=== PATIENT | female | born 1955 | race African-American/Black ===

== ENCOUNTER 2017-08-10 14:38 | Emergency (ER) | payer OTHER | END 2017-08-10 15:30 | disposition home or self-care (01) | LOC: MADERS 14:38 | DX: I82.402 Acute embolism and thrombosis of unspecified deep veins of left lower extremity (principal); I10 Essential (primary) hypertension; J44.9 Chronic obstructive pulmonary disease, unspecified; F32.9 Major depressive disorder, single episode, unspecified; Z79.899 Other long term (current) drug therapy | CPT/HCPCS: 99283 ==

== ENCOUNTER 2017-08-11 10:09 | Emergency (ER) | payer OTHER ==
[2017-08-11] MEDS ORDERED: Ibuprofen 600 MG TAB ONE (11:08)
--- NOTE | 2017-08-11 11:09 | RAD ---
3 VIEWS LEFT ANKLE: Date; 08/11/17 HISTORY: Left ankle pain and swelling for 2 weeks. FINDINGS: Ankle mortise is congruent. No fracture or dislocation is seen involving the left ankle. There is a l arge amount of subcutaneous soft tissue swelling about the ankle. No other findings. IMPRESSION: Large amount of subcutaneous soft tissue swelling about the ankle. POS: [facility]
== END 2017-08-11 11:26 | disposition home or self-care (01) ==
LOC: MADERS 10:09
DX: S90.02XA Contusion of left ankle, initial encounter (principal); J44.9 Chronic obstructive pulmonary disease, unspecified; I10 Essential (primary) hypertension; F32.9 Major depressive disorder, single episode, unspecified; Z79.899 Other long term (current) drug therapy; W19.XXXA Unspecified fall, initial encounter

== ENCOUNTER 2017-08-24 14:29 | Emergency (ER) | payer MEDICARE ==
[~2017-08-24 14:29] MED LIST: Sodium Chloride 0.9% 1,000 ML BAG ONE
[2017-08-24] MEDS ORDERED: Ibuprofen 400 MG TAB ONE (16:05)
[2017-08-24] MEDS ORDERED: Albuterol Sulfate 1.25 MG/3 ML NEB ONE ×2 (16:05→16:47)
--- NOTE | 2017-08-24 16:31 | RAD ---
CHEST PA AND LATERAL TWO VIEWS: 08/24/17 HISTORY: 61-year-old female with cough and flu-like symptoms for four days. COMPARISON: 09/28/05. Marked bilateral hyperinflation and chronic lung changes with some linear and parenchymal changes in the right mid lung zone and in both bases, somewhat more prominent than on the prior study. No conflu ent pneumonia or overt edema. IMPRESSION: Fairly extensive bilateral hyperinflation and chronic lung changes with some reticulonodular and line ar parenchymal changes, particularly in the right mid lung zone and both bases. No evidence for confl uent pneumonia. POS: [facility]
[2017-08-24] MEDS ORDERED: Acetaminophen 325 MG TAB ONE ×2 (16:49→16:50)
[2017-08-24 16:50] LABS: ALT (SGPT) Less than 7 U/L (8-55); AST (SGOT) 23 U/L (5-34); Albumin 3.4 g/dL (3.5-5.0); Alkaline Phosphatase 252 U/L (40-150); Anion Gap 14 mmol/L (10-20); BUN (Urea Nitrogen) 8 mg/dL (9.8-20.1); Bilirubin, Total 0.4 mg/dL (0.2-1.2); Calc. Creatinine Clearance 0 mL/min (70-130); Calcium 8.7 mg/dL (7.8-10.44); Carbon Dioxide 17 mmol/L (22-29); Chloride 115 mmol/L (98-107); Estimated GFR-MDRD 85; Globulin 3.6 g/dL (2.4-3.5); Glucose 108 mg/dL (70-105); Potassium 4.8 mmol/L (3.5-5.1); Sodium 141 mmol/L (136-145)
[2017-08-24 17:01] LABS: Eosinophils 1 % (0-10); Hemoglobin 10.1 g/dL (12.0-16.0); Lymphocytes 6 % (21-51); MDiff Complete? YES; Mean Corpuscular HGB CONC 29.6 g/dL (32.0-36.0); Mean Corpuscular Hemoglobin 29.4 pg (27.0-31.0); Mean Corpuscular Volume 99.4 fl (81.0-99.0); Mean Platelet Volume 5.8 fL (7.4-10.4); Monocytes 8 % (0-10); Neutrophil 82 % (42-75); PLT Morphology Comment Appears Adequate; Platelet Count 436 thou/uL (130-400); Polychromasia SLIGHT = 2-3 cells (100X) (0-2/hpf); RBC Distribution Width 16.5 % (11.5-14.5); Reactive Lymphocytes 3 % (0-10); Red Blood Cell (RBC) Count 3.43 mill/uL (4.20-5.40); White Blood Cell (WBC) Count 14.7 thou/uL (4.8-10.8)
[2017-08-24] MEDS ORDERED: cefTRIAXone\\ROCEPHIN 1 GM VIAL ONE (17:42)
== END 2017-08-24 18:25 | disposition home or self-care (01) ==
LOC: MADERS 14:29
DX: J44.1 Chronic obstructive pulmonary disease with (acute) exacerbation (principal); E78.5 Hyperlipidemia, unspecified; F32.9 Major depressive disorder, single episode, unspecified; F17.210 Nicotine dependence, cigarettes, uncomplicated; I10 Essential (primary) hypertension; Z79.899 Other long term (current) drug therapy
CPT/HCPCS: 36415; 71020; 80053; 85025; 87040; 96361; 96372; 96374; J0696; J1040; J7050

== ENCOUNTER 2017-09-06 08:42 | Outpatient (CLI) | payer MEDICARE, MEDICAID ==
[2017-09-06 09:02] LABS: #Basophils 0.2 thou/uL (0.0-0.2); #Eosinphils 0.2 thou/uL (0.0-0.7); #Lymphocytes 2.1 thou/uL (1.20-3.40); #Monocytes 0.9 thou/uL (0.11-0.59); #Neutrophils 5.5 thou/uL (1.40-6.50); %Basophils 2.1 % (0.0-1.0); %Lymphocytes 23.8 % (21.0-51.0); %Monocytes 10.2 % (0.0-10.0); %Neutrophils 61.9 % (42.0-75.0); Hemoglobin 10.6 g/dL (12.0-16.0); Mean Corpuscular HGB CONC 30.4 g/dL (32.0-36.0); Mean Corpuscular Hemoglobin 29.5 pg (27.0-31.0); Mean Platelet Volume 5.3 fL (7.4-10.4); Platelet Count 412 thou/uL (130-400); RBC Distribution Width 17.6 % (11.5-14.5); White Blood Cell (WBC) Count 8.8 thou/uL (4.8-10.8)
[2017-09-06 09:06] LABS: INR-International Normal Ratio 1.1; Prothrombin Time 14.2 SEC (12.0-14.7)
[2017-09-06 09:07] LABS: PTT 36.2 SEC (22.9-36.1)
[2017-09-06 09:56] LABS: Carbon Dioxide 19 mmol/L (22-29); Chloride 114 mmol/L (98-107); Potassium 4.4 mmol/L (3.5-5.1); Sodium 142 mmol/L (136-145)
[2017-09-06 09:57] LABS: Albumin 3.8 g/dL (3.5-5.0); BUN (Urea Nitrogen) 10 mg/dL (9.8-20.1); Bilirubin, Total 0.4 mg/dL (0.2-1.2); Calc. Creatinine Clearance 0 mL/min (70-130); Calcium 8.7 mg/dL (7.8-10.44); Cholesterol 155 mg/dL (< 200 Desired); Estimated GFR-MDRD Greater than 90; Globulin 3.3 g/dL (2.4-3.5); Glucose 113 mg/dL (70-105); Protein, Total 7.1 g/dL (6.0-8.3)
[2017-09-06 09:58] LABS: ALT (SGPT) 15 U/L (8-55); AST (SGOT) 36 U/L (5-34); Alkaline Phosphatase 211 U/L (40-150); HDL Cholesterol 61 mg/dL (>60 Neg Risk); Triglycerides 72 mg/dL (Less than 150); Uric Acid 8.7 mg/dL (2.6-6.0)
[2017-09-06 10:03] LABS: Anion Gap 13 mmol/L (10-20); Cardiac Risk 2.5 (Less than 4.5); LDL Cholesterol, Calculated 80 mg/dL
== END 2017-09-06 08:43 | disposition home or self-care (01) ==
LOC: MADLABBHPM 08:42
PROVIDERS: ATTEND Family Medicine
DX: Z13.21 Encounter for screening for nutritional disorder (principal); Z13.0 Encounter for screening for diseases of the blood and blood-forming organs and certain disorders involving the immune mechanism; Z13.220 Encounter for screening for lipoid disorders; Z13.29 Encounter for screening for other suspected endocrine disorder; I10 Essential (primary) hypertension
CPT/HCPCS: 36415; 80053; 80061; 84443; 84550; 85025; 85610; 85652; 85730; 86141

== ENCOUNTER 2017-09-19 08:51 | Emergency (ER) | payer MEDICARE ==
[2017-09-19 10:16] LABS: Hemoglobin 10.9 g/dL (12.0-16.0); Mean Corpuscular HGB CONC 30.8 g/dL (32.0-36.0); Mean Corpuscular Hemoglobin 28.8 pg (27.0-31.0); Mean Corpuscular Volume 93.6 fl (81.0-99.0); Mean Platelet Volume 6.5 fL (7.4-10.4); Platelet Count 206 thou/uL (130-400); RBC Distribution Width 16.6 % (11.5-14.5); Red Blood Cell (RBC) Count 3.77 mill/uL (4.20-5.40); White Blood Cell (WBC) Count 7.7 thou/uL (4.8-10.8)
[2017-09-19 10:20] LABS: Band 7 % (5-11); Eosinophils 1 % (0-10); Lymphocytes 25 % (21-51); MDiff Complete? YES; Manual Diff?? YES; Monocytes 13 % (0-10); Neutrophil 54 % (42-75)
--- NOTE | 2017-09-19 10:20 | RAD ---
FRONTAL VIEW CHEST: INDICATIONS: Cough. COMPARISON: 08/24/2017 FINDINGS: Redemonstration of pulmonary hyperinflation with evidence of bullous emphysema. Linear areas of pare nchymal scarring are seen bilaterally. Metallic clips remain at the lower right chest. The cardiac silhouette is stable. IMPRESSION: 1. Stable chest. 2. 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 POS: [facility]
[2017-09-19 10:21] LABS: Anisocytosis SLIGHT = 6-15 cells (100X) (0-5/hpf); PLT Morphology Comment Appears Adequate; Poikilocytosis SLIGHT = 6-15 cells (100X) (0-5/hpf)
[2017-09-19 10:49] LABS: ALT (SGPT) 7 U/L (8-55); AST (SGOT) 23 U/L (5-34); Albumin 3.7 g/dL (3.5-5.0); Alkaline Phosphatase 251 U/L (40-150); Anion Gap 17 mmol/L (10-20); BUN (Urea Nitrogen) 13 mg/dL (9.8-20.1); Bilirubin, Total 0.5 mg/dL (0.2-1.2); Calc. Creatinine Clearance 0 mL/min (70-130); Calcium 8.8 mg/dL (7.8-10.44); Carbon Dioxide 11 mmol/L (22-29); Chloride 116 mmol/L (98-107); Estimated GFR-MDRD 87; Globulin 3.4 g/dL (2.4-3.5); Glucose 98 mg/dL (70-105); Potassium 4.7 mmol/L (3.5-5.1); Protein, Total 7.1 g/dL (6.0-8.3); Sodium 139 mmol/L (136-145)
[2017-09-19] MEDS ORDERED: cefTRIAXone\\ROCEPHIN 1 GM VIAL ONE (11:27)
[2017-09-19] MEDS ORDERED: Lidocaine 1% 20 ML MDV ONE ×3 (11:27→11:31)
== END 2017-09-19 12:00 | disposition home or self-care (01) ==
LOC: MADERS 08:51
DX: J44.1 Chronic obstructive pulmonary disease with (acute) exacerbation (principal); J45.909 Unspecified asthma, uncomplicated; I10 Essential (primary) hypertension; E78.5 Hyperlipidemia, unspecified; F32.9 Major depressive disorder, single episode, unspecified; F17.210 Nicotine dependence, cigarettes, uncomplicated; Z79.899 Other long term (current) drug therapy
CPT/HCPCS: 71045; 80053; 85025; 94760; 96372; J0696; J1040; J2001; J7620

== ENCOUNTER 2018-03-21 03:22 | Emergency (ER) | payer MEDICARE, MEDICAID ==
[2018-03-21] MEDS ORDERED: Famotidine In NaCl 20 mg/50 ml Premix Bag ONE (04:05)
[2018-03-21] MEDS ORDERED: Ketorolac Tromethamine 30 MG/ML VIAL ONE (04:05)
[2018-03-21] MEDS ORDERED: Ondansetron HCl/PF 4 MG/2 ML Vial ONE (04:05)
[2018-03-21 04:35] LABS: Anion Gap 16 mmol/L (10-20); BUN (Urea Nitrogen) 13 mg/dL (9.8-20.1); Calc. Creatinine Clearance 0 mL/min (70-130); Calcium 8.7 mg/dL (7.8-10.44); Carbon Dioxide 13 mmol/L (23-31); Chloride 112 mmol/L (98-107); Estimated GFR-MDRD 60; Glucose 120 mg/dL (80-115); Lipase 86 U/L (8-78); Potassium 4.5 mmol/L (3.5-5.1); Sodium 136 mmol/L (136-145)
[2018-03-21 05:21] LABS: #Basophils 0.2 thou/uL (0.0-0.2); #Eosinphils 0.2 thou/uL (0.0-0.7); #Lymphocytes 2.3 thou/uL (1.20-3.40); #Monocytes 1.3 thou/uL (0.11-0.59); #Neutrophils 6.9 thou/uL (1.40-6.50); %Basophils 1.5 % (0.0-1.0); %Eosinophils 1.4 % (0.0-10.0); %Lymphocytes 21.6 % (21.0-51.0); %Monocytes 12.1 % (0.0-10.0); %Neutrophils 63.5 % (42.0-75.0); Hemoglobin 12.8 g/dL (12.0-16.0); Mean Corpuscular HGB CONC 31.4 g/dL (32.0-36.0); Mean Corpuscular Hemoglobin 26.7 pg (27.0-31.0); Mean Corpuscular Volume 84.8 fL (78.0-98.0); Platelet Count 296 thou/uL (130-400); RBC Distribution Width 15.3 % (11.5-14.5); White Blood Cell (WBC) Count 10.8 thou/uL (4.8-10.8)
== END 2018-03-21 07:05 | disposition home or self-care (01) ==
LOC: MADERS 03:22
DX: K21.0 Gastro-esophageal reflux disease with esophagitis (principal); F32.9 Major depressive disorder, single episode, unspecified; F17.210 Nicotine dependence, cigarettes, uncomplicated; I10 Essential (primary) hypertension; J44.9 Chronic obstructive pulmonary disease, unspecified; E78.5 Hyperlipidemia, unspecified
CPT/HCPCS: 36415; 80048; 82150; 83690; 85025; 96361; 96365; 96375; J1885; J2405; J7050

== ENCOUNTER 2018-04-15 23:07 | Emergency (ER) | payer MEDICARE, MEDICAID ==
[2018-04-15] MEDS ORDERED: Acetaminophen/Codeine 30-300mg Tablet ONE (23:30)
[2018-04-15] MEDS ORDERED: Ketorolac Tromethamine 30 MG/ML VIAL ONE (23:31)
== END 2018-04-15 23:55 | disposition home or self-care (01) ==
LOC: MADERS 23:07
DX: M79.631 Pain in right forearm (principal); I10 Essential (primary) hypertension; J44.9 Chronic obstructive pulmonary disease, unspecified; E78.5 Hyperlipidemia, unspecified; F32.9 Major depressive disorder, single episode, unspecified; F17.210 Nicotine dependence, cigarettes, uncomplicated; Z79.899 Other long term (current) drug therapy
CPT/HCPCS: 96372; 99406; J1885

== ENCOUNTER 2018-04-17 09:52 | Outpatient (CLI) | payer MEDICARE, MEDICAID ==
--- NOTE | 2018-04-17 11:32 | RAD ---
LUMBAR SPINE TWO VIEWS: HISTORY: Low back pain. FINDINGS: Five lumbar type vertebrae. Pedicles are intact. Vertebral body height and alignment are maintained . Moderate osteophytosis throughout the vertebral bodies and facets. Disk space narrowing and gas d isk phenomenon at the lowest two levels. Rightward convex curvature on the frontal view. Large dystrophic calcification over the pelvis. Metallic clips overly the gallbladder fossa. Rounde d, dystrophic calcifications overly the left upper quadrant at the expected location of the pancreas. Calcification over the arterial structures. IMPRESSION: 1. Moderate osteoarthritic changes, lumbar spine. No acute osseous abnormalities are demonstrated. 2. Atherosclerosis. 3. Status post cholecystectomy. 4. Fibroid disease of the uterus. 5. Chronic pancreatitis. POS: [facility]
== END 2018-04-17 09:53 | disposition home or self-care (01) ==
LOC: MADRAD 09:52
PROVIDERS: ATTEND Family Medicine
DX: M47.896 Other spondylosis, lumbar region (principal); I70.90 Unspecified atherosclerosis
CPT/HCPCS: 72100

== ENCOUNTER 2018-05-08 18:19 | Emergency (ER) | payer MEDICARE, MEDICAID ==
[2018-05-08] MEDS ORDERED: HYDROcodone/Acetaminophen 5/325 mg Tablet ONE (18:50)
[2018-05-08] MEDS ORDERED: Ketorolac Tromethamine 30 MG/ML VIAL ONE (18:50)
--- NOTE | 2018-05-08 21:04 | RAD ---
CERVICAL SPINE AP AND LATERAL STANDARD 05/08/18 HISTORY: Pain. History of scoliosis and neuropathy. COMPARISON: None. FINDINGS: The open mouth odontoid views are severely limited due to overlying artifact. There is mild widening of the C4-5 disc space. There is severe degenerative disc space disease at C3-4 as well as C5-6 and C 6-7 large osteophytes. IMPRESSION: Severely limited exam due to the overlying artifact which may be the patient's hair. Mild widening of the C4-5 disc space may be degenerative in nature. Nonemergent MRI may be beneficial if clinically w arranted. POS: [facility]
== END 2018-05-08 19:29 | disposition home or self-care (01) ==
LOC: MADERS 18:19
DX: S13.9XXA Sprain of joints and ligaments of unspecified parts of neck, initial encounter (principal); E78.5 Hyperlipidemia, unspecified; I10 Essential (primary) hypertension; J44.9 Chronic obstructive pulmonary disease, unspecified; F32.9 Major depressive disorder, single episode, unspecified; F17.210 Nicotine dependence, cigarettes, uncomplicated; Z79.899 Other long term (current) drug therapy; X58.XXXA Exposure to other specified factors, initial encounter
CPT/HCPCS: 72040; 96372; J1885

== ENCOUNTER 2018-10-12 17:10 | Emergency (ER) | payer MEDICARE, MEDICAID ==
[2018-10-12] MEDS ORDERED: predniSONE 20 MG TAB ONE (17:57)
[2018-10-12] MEDS ORDERED: HYDROcodone/Acetaminophen 5/325 mg Tablet ONE (17:57)
== END 2018-10-12 18:00 | disposition home or self-care (01) ==
LOC: MADERS 17:10
DX: M54.12 Radiculopathy, cervical region (principal); F32.9 Major depressive disorder, single episode, unspecified; I10 Essential (primary) hypertension; J44.9 Chronic obstructive pulmonary disease, unspecified; E78.5 Hyperlipidemia, unspecified; M19.90 Unspecified osteoarthritis, unspecified site; F17.210 Nicotine dependence, cigarettes, uncomplicated; Z79.891 Long term (current) use of opiate analgesic; Z79.82 Long term (current) use of aspirin; Z79.899 Other long term (current) drug therapy
CPT/HCPCS: 99283; J7506

== ENCOUNTER 2019-01-23 17:42 | Emergency (ER) | payer MEDICARE, MEDICAID | END 2019-01-23 18:14 | disposition home or self-care (01) | LOC: MADERS 17:42 | DX: J20.9 Acute bronchitis, unspecified (principal); G89.29 Other chronic pain; M54.2 Cervicalgia; Z71.6 Tobacco abuse counseling; I10 Essential (primary) hypertension; J44.9 Chronic obstructive pulmonary disease, unspecified; E78.5 Hyperlipidemia, unspecified; M10.9 Gout, unspecified; F17.210 Nicotine dependence, cigarettes, uncomplicated; F32.9 Major depressive disorder, single episode, unspecified; Z79.899 Other long term (current) drug therapy; Z79.82 Long term (current) use of aspirin | CPT/HCPCS: 99406 ==

== ENCOUNTER 2019-07-26 09:19 | Emergency (ER) | payer MEDICARE, MEDICAID ==
[2019-07-26] MEDS ORDERED: Dexamethasone 4 mg/ml Vial ONE (09:23)
--- NOTE | 2019-07-26 09:58 | RAD ---
EXAM: Chest 2 views: HISTORY: Cough and shortness of breath COMPARISON: 08/24/2017 FINDINGS: There is a normal-sized cardiomediastinal silhouette. Increased interstitial markings are stable. T here is no evidence of consolidation, mass, or pleural effusion. The bones are unremarkable. IMPRESSION: No evidence of acute cardiopulmonary disease
[2019-07-26] MEDS ORDERED: Azithromycin 250 MG TAB ONE (10:00)
[2019-07-26] MEDS ORDERED: Acetaminophen 500 MG TAB ONE (10:04)
== END 2019-07-26 10:52 | disposition home or self-care (01) ==
LOC: MADERS 09:19
DX: J44.1 Chronic obstructive pulmonary disease with (acute) exacerbation (principal); J18.9 Pneumonia, unspecified organism; I10 Essential (primary) hypertension; M19.90 Unspecified osteoarthritis, unspecified site; Z79.899 Other long term (current) drug therapy; Z79.82 Long term (current) use of aspirin
CPT/HCPCS: 71046; 87804; 96372; J1100; J7620

== ENCOUNTER 2019-07-28 22:19 | Emergency (ER) | payer MEDICARE, MEDICAID ==
[2019-07-28] MEDS ORDERED: Dexamethasone 10 MG/ML VIAL ONE (22:37)
== END 2019-07-28 22:43 | disposition home or self-care (01) ==
LOC: MADERS 22:19
DX: J44.1 Chronic obstructive pulmonary disease with (acute) exacerbation (principal); I10 Essential (primary) hypertension; M19.90 Unspecified osteoarthritis, unspecified site; F17.210 Nicotine dependence, cigarettes, uncomplicated
CPT/HCPCS: 96372; J1100; J7620

== ENCOUNTER 2019-08-02 16:15 | Emergency (ER) | payer MEDICARE, MEDICAID ==
--- NOTE | 2019-08-02 16:41 | RAD ---
EXAM: Chest PA and lateral: HISTORY: COPD. Worsening cough. Shortness of breath COMPARISON: 07/26/2019 FINDINGS: Heart: Enlarged cardiac silhouette Aorta: Unremarkable Pulmonary vessels: Normal Costophrenic angles: Costophrenic angles are clear. Lungs: Chronic changes along parenchyma. Hyperinflation. There does appear to be superimposed infiltr ate in the right lower lobe. Pneumothorax: No pneumothorax Osseous structures: No osseous abnormalities IMPRESSION: No significant interval change. Hyperinflation and chronic changes along parenchyma. There does appea r to be a superimposed infiltrate in the right lower lobe. Continued surveillance to ensure resolution is recommended Transcribed Date/Time: 08/02/2019 5:08 PM
[2019-08-02] MEDS ORDERED: methylPREDNISolone Sod Succ/PF 125 MG/2 ML VIAL ONE (17:20)
[2019-08-02 17:41] LABS: ALT (SGPT) 12 U/L (8-55); AST (SGOT) 18 U/L (5-34); Albumin 3.7 g/dL (3.4-4.8); Alkaline Phosphatase 209 U/L (40-110); Anion Gap 14 mmol/L (10-20); BUN (Urea Nitrogen) 7 mg/dL (9.8-20.1); Bilirubin, Total 0.5 mg/dL (0.2-1.2); CK (CPK) 50 U/L (29-168); Calc. Creatinine Clearance 0 mL/min (70-130); Calcium 6.7 mg/dL (7.8-10.44); Carbon Dioxide 20 mmol/L (23-31); Chloride 112 mmol/L (98-107); Estimated GFR-MDRD Greater than 90; Globulin 3.2 g/dL (2.4-3.5); Glucose 113 mg/dL (80-115); Potassium 4.1 mmol/L (3.5-5.1); Protein, Total 6.9 g/dL (6.0-8.3); Sodium 142 mmol/L (136-145)
[2019-08-02 17:52] LABS: Anisocytosis SLIGHT = 6-15 cells (100X) (0-5/hpf); Band 3 % (5-11); Eosinophils 1 % (0-10); Hemoglobin 11.5 g/dL (12.0-16.0); Hypochromia SLIGHT = 6-15 cells (100X) (0-5/hpf); Lymphocytes 13 % (21-51); MDiff Complete? YES; Mean Corpuscular HGB CONC 29.1 g/dL (32.0-36.0); Mean Corpuscular Hemoglobin 25.8 pg (27.0-31.0); Mean Corpuscular Volume 88.7 fL (78.0-98.0); Mean Platelet Volume 6.9 fL (7.4-10.4); Monocytes 15 % (0-10); Neutrophil 68 % (42-75); Platelet Count 298 thou/uL (130-400); Platelet Morphology Comment Appears Adequate; RBC Distribution Width 14.4 % (11.5-14.5); Red Blood Cell (RBC) Count 4.47 mill/uL (4.20-5.40); White Blood Cell (WBC) Count 11.7 thou/uL (4.8-10.8)
== END 2019-08-02 18:30 | disposition home or self-care (01) ==
LOC: MADERS 16:15
DX: J44.0 Chronic obstructive pulmonary disease with (acute) lower respiratory infection (principal); J18.9 Pneumonia, unspecified organism; I10 Essential (primary) hypertension; M19.90 Unspecified osteoarthritis, unspecified site; F17.210 Nicotine dependence, cigarettes, uncomplicated; Z79.82 Long term (current) use of aspirin; Z71.6 Tobacco abuse counseling; Z79.51 Long term (current) use of inhaled steroids; Z79.899 Other long term (current) drug therapy
CPT/HCPCS: 36415; 71046; 80053; 82550; 83880; 85025; 87040; 96365; 96375; 99407; J1956; J2930; J7620

== ENCOUNTER 2020-02-07 13:12 | Emergency (ER) | payer MEDICARE, MEDICAID ==
[2020-02-07] MEDS ORDERED: HYDROcodone/Acetaminophen 5/325 mg Tablet ONE (14:31)
[2020-02-07] MEDS ORDERED: Ketorolac Tromethamine 30 MG/ML VIAL ONE (14:31)
[2020-02-07] MEDS ORDERED: methylPREDNISolone Sod Succ/PF 125 MG/2 ML VIAL ONE (14:31)
== END 2020-02-07 15:05 | disposition home or self-care (01) ==
LOC: MADERS 13:12
DX: G89.29 Other chronic pain (principal); M54.5 Low back pain; M54.2 Cervicalgia; I10 Essential (primary) hypertension; M19.90 Unspecified osteoarthritis, unspecified site; J44.9 Chronic obstructive pulmonary disease, unspecified; F17.210 Nicotine dependence, cigarettes, uncomplicated; Z79.899 Other long term (current) drug therapy; Z79.82 Long term (current) use of aspirin
CPT/HCPCS: 96372; 99283; J1885; J2930

== ENCOUNTER 2020-07-12 12:10 | Emergency (ER) | payer MEDICARE, MEDICAID, OTHER ==
[~2020-07-12 12:10] MED LIST changes: +Iopamidol 370 76% 100 ML VIAL ONE; -Sodium Chloride 0.9% 1,000 ML BAG ONE
--- NOTE | 2020-07-12 12:44 | RAD ---
XR Chest 1 View Portable History: Dyspnea Comparison: Radiograph 2019 Findings: Abnormal left upper lobe mass as well as multiple right perihilar masses. Background lung h yperinflation. Scar right lung base. Impression: Multifocal lung masses concerning for malignancy. Nonemergent chest CT recommended.
[2020-07-12] MEDS ORDERED: methylPREDNISolone Sod Succ/PF 125 MG/2 ML VIAL ONE (12:48)
[2020-07-12] MEDS ORDERED: Levofloxacin 500 mg/D5W 100 ml Premix Bag ONE (13:50)
[2020-07-12 13:59] LABS: #Basophils 0.2 thou/uL (0.0-0.2); #Eosinphils 0.1 thou/uL (0.0-0.7); #Lymphocytes 1.9 thou/uL (1.20-3.40); #Neutrophils 5.7 thou/uL (1.40-6.50); %Eosinophils 1.3 % (0.0-10.0); %Lymphocytes 21.1 % (21.0-51.0); %Monocytes 10.8 % (0.0-10.0); %Neutrophils 64.8 % (42.0-75.0); Hemoglobin 13.6 g/dL (12.0-16.0); Mean Corpuscular HGB CONC 29.9 g/dL (32.0-36.0); Mean Corpuscular Hemoglobin 26.7 pg (27.0-31.0); Mean Corpuscular Volume 89.5 fL (78.0-98.0); Mean Platelet Volume 5.9 fL (7.4-10.4); Platelet Count 357 thou/uL (130-400); RBC Distribution Width 14.7 % (11.5-14.5); White Blood Cell (WBC) Count 8.8 thou/uL (4.8-10.8)
[2020-07-12 14:02] LABS: Albumin 4.3 g/dL (3.4-4.8); Calcium 8.3 mg/dL (7.8-10.44); Chloride 113 mmol/L (98-107); Potassium 4.2 mmol/L (3.5-5.1); Sodium 144 mmol/L (136-145)
[2020-07-12 14:20] LABS: ALT (SGPT) 24 U/L (8-55); AST (SGOT) 40 U/L (5-34); Alkaline Phosphatase 257 U/L (40-110); Anion Gap 17 mmol/L (10-20); BUN (Urea Nitrogen) 10 mg/dL (9.8-20.1); Bilirubin, Total 0.2 mg/dL (0.2-1.2); CK (CPK) 49 U/L (29-168); Calc. Creatinine Clearance 0 mL/min (70-130); Carbon Dioxide 18 mmol/L (23-31); Estimated GFR-MDRD 76; Globulin 3.3 g/dL (2.4-3.5); Glucose 79 mg/dL (80-115); Protein, Total 7.6 g/dL (6.0-8.3)
--- NOTE | 2020-07-12 15:16 | CT ---
CT CHEST WITH CONTRAST CLINICAL INDICATION: Dyspnea. COMPARISON: None FINDINGS: Aorta: Mild scattered vascular calcifications. Thoracic aorta is normal in caliber without evidence o f an aortic dissection. The main pulmonary arteries are mildly dilated with respect to the adjacent thoracic aorta with a diameter of 3.9 cm involving the main pulmonary artery which suggests an elemen t of pulmonary artery hypertension. Lungs: Multifocal patchy parenchymal opacities are seen throughout the right lung greatest involving the right upper lobe and right lower lobe with patchy parenchymal densities in the left lower lobe and a nodular parenchymal opacity in the left upper lobe. Findings are worrisome for infectious proce ss and possibly atypical infectious process. No obvious filling defect is seen within the large airways. A trace right pleural effusion is present. Mediastinum: No enlarged lymph nodes are seen by CT size criteria; although, there is a mild increase in number of mediastinal and hilar lymph nodes which are probably reactive in origin. The heart is mildly enlarged. Thyroid gland: Small subcentimeter hypodense nodule is seen in the right lobe of the thyroid gland. F ollow-up nonemergent thyroid ultrasound is recommended. Osseous structures: Mild degenerative changes in the thoracic spine. There is question of slight heig ht loss involving the C6 vertebral body likely related to a remote injury versus severe degenerative changes resulting in this appearance. This is incompletely imaged or evaluated on this e xam. No suspicious lytic or sclerotic osseous lesions are identified. Chest wall: Surgical clips are seen in the right breast. Upper abdomen: Within normal limits for phase of imaging. IMPRESSION: 1. Multifocal patchy parenchymal densities throughout the lungs bilaterally worrisome for infectious process and possibly atypical infectious process. Follow-up to resolution is recommended. 2. Trace right pleural effusion. 3. Mild cardiomegaly. 4. Findings suggestive of pulmonary artery hypertension. 5. Probable reactive lymphadenopathy within the mediastinum and each hilar region. 6. Hypodense nodule right lobe of thyroid gland. Follow-up thyroid ultrasound is recommended.
[2020-07-13 16:30] LABS: SARS-CoV-2 MS2 Positive; SARS-CoV-2 N Gene Negative; SARS-CoV-2 S Gene Negative; SARS-CoV-2 by NAA Not Detected (NotDetected); SARS-CoV-2 orf1ab Negative
== END 2020-07-12 16:07 | disposition home or self-care (01) ==
LOC: MADERS 12:10
DX: J44.1 Chronic obstructive pulmonary disease with (acute) exacerbation (principal); J18.9 Pneumonia, unspecified organism; Z20.828 Contact with and (suspected) exposure to other viral communicable diseases; I10 Essential (primary) hypertension; M19.90 Unspecified osteoarthritis, unspecified site; F17.210 Nicotine dependence, cigarettes, uncomplicated; D64.9 Anemia, unspecified
CPT/HCPCS: 71045; 71260; 80053; 82550; 83880; 84484; 85025; 94640; 94760; U0003; 87635; 96365; 96375; J1956; J2930; J7620; Q9967

== ENCOUNTER 2020-10-24 11:47 | Emergency (ER) | payer MEDICARE, MEDICAID ==
--- NOTE | 2020-10-24 12:34 | RAD ---
EXAM: CHEST TWO VIEWS 10/24/2020 12:28 PM HISTORY: History of cough COMPARISON: August 02, [address] of the chest dated 07/12/2020 FINDINGS: Lungs: There is a spiculated nodule opacity within the left upper lobe that has been present on ches t radiograph dating back to 2017. Previously seen parenchymal density in the right upper lobe is clear. Scattered scarring is stable. No new airspace opacities evident. Heart: Stable mild cardiomegaly Pulmonary Vessels: Normal. Costophrenic Angles: Clear. Pneumothorax: None. Osseous Structures: Intact. Additional Findings: Postsurgical change involving the right breast is stable. IMPRESSION: Largely stable spiculated nodular density of the left upper lobe, similar to comparison chest radiogr aphs dating to 2017. No new acute cardiopulmonary abnormality demonstrated. There is stable mild cardiomegaly. Stable scattered scarring throughout both lungs. Airspace disease of the right lung on the prior chest radiographic examination has intervally cleared.
[2020-10-24] MEDS ORDERED: HYDROcodone/Acetaminophen 5/325 mg Tablet ONE (12:43)
[2020-10-24] MEDS ORDERED: Dexamethasone 4 MG TAB ONE (12:44)
[2020-10-24] MEDS ORDERED: Ketorolac Tromethamine 30 MG/ML VIAL ONE (12:44)
[2020-10-24] MEDS ORDERED: Amoxicillin/Potassium Clav 875 MG TAB ONE (12:44)
== END 2020-10-24 13:05 | disposition home or self-care (01) ==
LOC: MADERS 11:47
DX: J01.90 Acute sinusitis, unspecified (principal); B96.89 Other specified bacterial agents as the cause of diseases classified elsewhere; I10 Essential (primary) hypertension; M25.50 Pain in unspecified joint; J44.9 Chronic obstructive pulmonary disease, unspecified; D64.9 Anemia, unspecified; F17.210 Nicotine dependence, cigarettes, uncomplicated
CPT/HCPCS: 71046; 96372; J1885; J8540

== ENCOUNTER 2021-06-27 14:51 | Emergency (ER) | payer MEDICARE, MEDICAID ==
[2021-06-27] MEDS ORDERED: Ondansetron PF 4 MG/2 ML Vial ONE ×2 (15:48→15:51)
[2021-06-27 15:56] LABS: ALT (SGPT) 11 U/L (8-55); AST (SGOT) 22 U/L (5-34); Albumin 2.6 g/dL (3.4-4.8); Alkaline Phosphatase 247 U/L (40-110); Anion Gap 15 mmol/L (10-20); BUN (Urea Nitrogen) 6 mg/dL (9.8-20.1); Bilirubin, Total 0.4 mg/dL (0.2-1.2); Calc. Creatinine Clearance 0 mL/min (70-130); Calcium 8.4 mg/dL (7.8-10.44); Carbon Dioxide 21 mmol/L (23-31); Chloride 110 mmol/L (98-107); Globulin 2.9 g/dL (2.4-3.5); Glucose 86 mg/dL (80-115); Lipase 4 U/L (8-78); Magnesium 1.4 mg/dL (1.6-2.6); Potassium 3.5 mmol/L (3.5-5.1); Protein, Total 5.5 g/dL (5.8-8.1); Sodium 142 mmol/L (136-145)
[2021-06-27 16:12] LABS: Band 3 % (5-11); Eosinophils 2 % (0-10); Hemoglobin 12.8 g/dL (12.0-16.0); Lymphocytes 9 % (21-51); MDiff Complete? YES; Mean Corpuscular HGB CONC 29.1 g/dL (32.0-36.0); Mean Corpuscular Hemoglobin 26.9 pg (27.0-31.0); Mean Corpuscular Volume 92.6 fL (78.0-98.0); Mean Platelet Volume 5.7 fL (7.4-10.4); Monocytes 2 % (0-10); Neutrophil 81 % (42-75); Platelet Count 391 thou/uL (130-400); Platelet Morphology Comment Appears Adequate; RBC Distribution Width 13.7 % (11.5-14.5); RBC Morphology Normal; Reactive Lymphocytes 3 % (0-10); Red Blood Cell (RBC) Count 4.77 mill/uL (4.20-5.40); White Blood Cell (WBC) Count 8.9 thou/uL (4.8-10.8)
[2021-06-27] MEDS ORDERED: Magnesium Oxide 400 MG TAB ONE (17:00)
== END 2021-06-27 17:05 | disposition home or self-care (01) ==
LOC: MADERS 14:51
DX: K85.90 Acute pancreatitis without necrosis or infection, unspecified (principal); K42.9 Umbilical hernia without obstruction or gangrene; I10 Essential (primary) hypertension; J44.9 Chronic obstructive pulmonary disease, unspecified; D64.9 Anemia, unspecified; F17.210 Nicotine dependence, cigarettes, uncomplicated
CPT/HCPCS: 36415; 71045; 74177; 80053; 83690; 83735; 84484; 85025; 96374; J2405; Q9967

== ENCOUNTER 2022-11-11 08:50 | Outpatient (CLI) | payer MEDICARE, MEDICAID | END 2022-11-11 08:51 | disposition home or self-care (01) | LOC: MADRAD 08:50 | PROVIDERS: ATTEND Internal Medicine | DX: J44.9 Chronic obstructive pulmonary disease, unspecified (principal) | CPT/HCPCS: 71046 ==

== ENCOUNTER 2024-08-22 11:30 | Emergency (ER) | payer OTHER, MEDICAID ==
[2024-08-22] MEDS ORDERED: traMADol HCl 50 MG TAB ONE (13:23)
== END 2024-08-22 13:53 | disposition home or self-care (01) ==
LOC: MADERS 11:30
DX: M54.50 Low back pain, unspecified (principal); M10.9 Gout, unspecified; I10 Essential (primary) hypertension; F17.210 Nicotine dependence, cigarettes, uncomplicated
CPT/HCPCS: 72072; 72100; 99283

== ENCOUNTER 2024-09-21 13:00 | Emergency (ER) | payer OTHER, MEDICAID ==
[2024-09-21] MEDS ORDERED: traMADol HCl 50 MG TAB ONE (13:22)
== END 2024-09-21 13:30 | disposition home or self-care (01) ==
LOC: MADERS 13:00
DX: M10.9 Gout, unspecified (principal); G89.29 Other chronic pain; M54.9 Dorsalgia, unspecified; M79.89 Other specified soft tissue disorders; I10 Essential (primary) hypertension; J44.9 Chronic obstructive pulmonary disease, unspecified; F17.210 Nicotine dependence, cigarettes, uncomplicated; Z55.6 Problems related to health literacy
CPT/HCPCS: 99283

== ENCOUNTER 2024-10-02 09:06 | Emergency (ER) | payer OTHER, MEDICAID ==
[2024-10-02] MEDS ORDERED: Ondansetron ODT 4 MG TAB ONE (09:17)
== END 2024-10-02 10:00 | disposition home or self-care (01) ==
LOC: MADERS 09:06
DX: J06.9 Acute upper respiratory infection, unspecified (principal); R11.2 Nausea with vomiting, unspecified; M10.9 Gout, unspecified; F17.210 Nicotine dependence, cigarettes, uncomplicated; I10 Essential (primary) hypertension
CPT/HCPCS: 87428; Q0162; 99284